=== PATIENT | female | born 2000 | race Caucasian/White ===

== ENCOUNTER 2021-06-04 09:04 | Emergency (ER) | payer OTHER ==
[~2021-06-04] VITALS: Ht 154.9 cm; Wt 82.1 kg
[2021-06-04] MEDS ORDERED: MICR1TAB16 PO (09:25)
[2021-06-04 10:58] LABS: BASO % 0.1 % (0.0-1.0); EOS # 0.1 10^3/uL (0.0-0.5); EOS % 0.5 % (0.0-3.0); HEMATOCRIT 46.9 % (36.0-47.0); HEMOGLOBIN 15.8 g/dl (12.0-15.5); LYMPH # 1.8 10^3/uL (1.5-5.0); LYMPH % 11.5 % (24.0-44.0); MEAN CORPUSCULAR HEMOGLOBIN 29.8 pg (27.0-33.0); MEAN CORPUSCULAR HGB CONC 33.7 g/dl (32.0-36.5); MEAN CORPUSCULAR VOLUME 88.5 fl (80.0-96.0); MONO # 0.8 10^3/uL (0.0-0.8); MONO % 4.9 % (2.0-8.0); NEUTROPHILS # 13.2 10^3/uL (1.5-8.5); NEUTROPHILS % 82.6 % (36.0-66.0); PLATELET COUNT, AUTOMATED 388 10^3/uL (150-450)
[2021-06-04 11:27] LABS: HCG, SERUM QUALITATIVE NEGATIVE (NEGATIVE)
[2021-06-04 11:28] LABS: ALT/SGPT 39 U/L (12-78); BILIRUBIN,DIRECT 0.1 MG/DL (0.0-0.2); BILIRUBIN,TOTAL 0.3 MG/DL (0.2-1.0); BLOOD UREA NITROGEN 10 MG/DL (7-18); CALCIUM LEVEL 8.6 MG/DL (8.5-10.1); CARBON DIOXIDE LEVEL 23 MEQ/L (21-32); CHLORIDE LEVEL 108 MEQ/L (98-107); CREATININE FOR GFR 0.66 MG/DL (0.55-1.30); GLUCOSE, FASTING 92 MG/DL (70-100); POTASSIUM SERUM 4.3 MEQ/L (3.5-5.1); SODIUM LEVEL 140 MEQ/L (136-145)
[2021-06-04 11:29] LABS: ALBUMIN 3.1 GM/DL (3.2-5.2); AMYLASE 99 U/L (25-115); TOTAL PROTEIN 6.8 GM/DL (6.4-8.2)
[2021-06-04] MEDS ORDERED: ISOVUE-370 76% 100ML VIAL As Ordered ONE (12:26)
[2021-06-04 14:09] VITALS: BP 127/66
[2021-06-04] MEDS ORDERED: IBUP80TA PO (14:09)
== END 2021-06-04 14:34 | disposition home or self-care (01) ==
LOC: M ED 09:04
DX: N83.291 Other ovarian cyst, right side (principal); E66.9 Obesity, unspecified; Z79.3 Long term (current) use of hormonal contraceptives
CPT/HCPCS: 74177; 76830; 76856; 80048; 80076; 81001; 82150; 84703; 85025; 93976; 99284; Q9967